=== PATIENT | female | born 1975 | race American Indian/Alaskan Native ===

== ENCOUNTER 2022-02-18 08:07 | Emergency (ER) | payer MEDICAID ==
[2022-02-18] MEDS ORDERED: LORazepam 0.5 MG Tab PO ONE (12:30)
== END 2022-02-18 12:41 | disposition other institution (70) ==
LOC: DL.ED 08:07
DX: F10.10 Alcohol abuse, uncomplicated (principal); F15.10 Other stimulant abuse, uncomplicated
CPT/HCPCS: 96365; 99284-25

== ENCOUNTER 2022-02-20 07:36 | Emergency (ER) | payer MEDICAID ==
[2022-02-20] MEDS: LORazepam 0.5 MG Tab PO ONE (08:27)
== END 2022-02-20 08:32 ==
LOC: DL.ED 07:36
DX: F41.9 Anxiety disorder, unspecified (principal); F15.93 Other stimulant use, unspecified with withdrawal; Z88.6 Allergy status to analgesic agent
CPT/HCPCS: 99284; A9270; 99283